=== PATIENT | female | born 1995 | race Hispanic/Latino ===

== ENCOUNTER 2018-05-17 18:14 | Emergency (ER) | payer OTHER ==
[2018-05-17 18:44] VITALS: RESP 18; BMI 38.9
[2018-05-17 20:27] LABS: URINE APPEARANCE CLEAR (CLEAR); URINE BILIRUBIN NEGATIVE (NEGATIVE); URINE BLOOD NEGATIVE (NEGATIVE); URINE COLOR LIGHT YELLOW (YELLOW); URINE GLUCOSE (UA) NEGATIVE (NEGATIVE); URINE LEUKOCYTE ESTERASE NEGATIVE Leu/uL (NEGATIVE); URINE PROTEIN NEGATIVE mg/dL (<30 mg/dL); URINE UROBILINOGEN 0.2 E.U./dL (<1 E.U./dL)
--- NOTE | 2018-05-17 20:40 | ED PDOC ---
Arrival/HPI <Eyad Mustafa - Last Filed: 05/17/18 21:19> - General Historian: Patient - History of Present Illness Narrative History of Present Illness (Text): 05/17/18 20:37 23 yo F complains of 3 days of constant L pelvic pain. She reports a h/o ovarian cyst which cause intermittent pelvic pain x1 year. She reports having a recent US in February of this year, which showed cyst on both ovaries L>R. Otherwise: (-) nausea / vomiting, (-) diarrhea, (-) fever, (-) urinary symptoms, (-) melena, (- ) hematochezia, (-) vaginal d/c, (-) vaginal bleding, (-) dyspareunia. Has history of prior abdominal surgery - 1 1 year ago. <Luli Turcios PA-C - Last Filed: 05/18/18 00:38> - General Chief Complaint: Abdominal Pain Time Seen by Provider: 05/17/18 19:02 Past Medical History - Cardiac Hx Cardiac Disorders: No - Pulmonary Hx Respiratory Disorders: No - Neurological Hx Neurological Disorder: No - Endocrine/Metabolic Hx Endocrine Disorders: No - Genitourinary/Gynecological Other/Comment: ovarian cysts - Psychiatric Hx Substance Use: No - Anesthesia Hx Anesthesia: No <Luli Turcios PA-C - Last Filed: 05/18/18 00:38> Family/Social History Family/Social History: No Known Family HX Smoking Status: Never Smoked Hx Alcohol Use: Yes Frequency of alcohol use: Socially Hx Substance Use: No <Luli Turcios PA-C - Last Filed: 05/18/18 00:38> Allergies/Home Meds <Eyad Mustafa - Last Filed: 05/17/18 21:19> <Luli Turcios PA-C - Last Filed: 05/18/18 00:38> Allergies/Adverse Reactions: Allergies No Known Allergies Allergy (Verified 05/17/18 19:22) Review of Systems - Review of Systems Constitutional: absent: Fatigue, Fevers Respiratory: absent: SOB, Cough Cardiovascular: absent: Chest Pain, Palpitations Gastrointestinal: Abdominal Pain. absent: Diarrhea, Nausea, Vomiting Genitourinary Female: absent: Dysuria, Frequency, Hematuria Musculoskeletal: absent: Arthralgias, Back Pain, Neck Pain Skin: absent: Rash, Pruritis Neurological: absent: Headache, Dizziness <Luli Turcios PA-C - Last Filed: 05/18/18 00:38> Physical Exam Vital Signs Temp Pulse Resp BP Pulse Ox 05/17/18 18:43 98.2 F 86 18 133/88 100 <Eyad Mustafa - Last Filed: 05/17/18 21:19> Vital Signs Temp Pulse Resp BP Pulse Ox 05/17/18 18:43 98.2 F 86 18 133/88 100 Temperature: Afebrile Blood Pressure: Normal Pulse: Regular Respiratory Rate: Normal Appearance: Positive for: Well-Appearing, Non-Toxic, Comfortable Pain Distress: None Mental Status: Positive for: Alert and Oriented X 3 - Systems Exam Head: Present: Atraumatic, Normocephalic Pupils: Present: PERRL Extroacular Muscles: Present: EOMI Conjunctiva: Present: Normal Mouth: Present: Moist Mucous Membranes Neck: Present: Normal Range of Motion, MIDLINE TENDERNESS. No: Meningeal Signs, Lymphadenopathy Respiratory/Chest: Present: Clear to Auscultation, Good Air Exchange. No: Respiratory Distress, Accessory Muscle Use, Rales, Rhonchi Cardiovascular: Present: Regular Rate and Rhythm, Normal S1, S2. No: Murmurs Abdomen: Present: Tenderness (+tenderness to the L pelvic area). No: Distention, Rebound, Guarding, Mass/Organomegaly Back: Present: Normal Inspection. No: CVA Tenderness, Midline Tenderness Upper Extremity: Present: Normal Inspection. No: Edema Lower Extremity: Present: Normal Inspection. No: Edema Neurological: Present: GCS=15, CN II-XII Intact, Speech Normal, Motor Func Grossly Intact Skin: Present: Warm, Dry, Normal Color. No: Rashes Psychiatric: Present: Alert, Oriented x 3, Normal Insight, Normal Concentration <Luli Turcios PA-C - Last Filed: 05/18/18 00:38> Medical Decision Making - Lab Interpretations Lab Results: Lab Results 05/17/18 20:00: Urine Color Light yellow, Urine Appearance Clear, Urine pH 6.0, Ur Specific [place] >= 1.030, Urine Protein Negative, Urine Glucose (UA) Negative, Urine Ketones Negative, Urine Blood Negative, Urine Nitrate Negative, Urine Bilirubin Negative, Urine Urobilinogen 0.2, Ur Leukocyte Esterase Negative - RAD Interpretation Radiology Orders: 05/17/18 19:23 TRANSVAGINAL [US] Stat <Eyad Mustafa - Last Filed: 05/17/18 21:19> ED Course and Treatment: 05/17/18 23:00 Plan : - Uhcg - UA - US TV Patient is refusing analgesics at this time. Uhcg (-) UA (-) US TV : Normal flow to both ovaries. Left ovarian cyst including a complex (hemorrhagic) 4.2 cm cyst. IUD is seen. Follow up study and a 1-2 menstrual cycles is recommended. As read by Tha Mccann MD 05/17/18 10:45 pm On reevaluation, patient reports no pain at this time. On exam, patient remains awake alert and oriented 3 in no acute distress. UA and US results d/w the patient. Advised to follow up with environmental programs manager in 1-2 days without fail. Return to the emergency room at any time for any new or worsening symptoms. Patient states she fully agrees with and understands discharge instructions. States that she agrees with the plan and disposition. Verbalized and repeated discharge instructions and plan. I have given the patient opportunity to ask any additional questions. - Lab Interpretations Lab Results: Lab Results 05/17/18 20:00: Urine Color Light yellow, Urine Appearance Clear, Urine pH 6.0, Ur Specific [place] >= 1.030, Urine Protein Negative, Urine Glucose (UA) Negative, Urine Ketones Negative, Urine Blood Negative, Urine Nitrate Negative, Urine Bilirubin Negative, Urine Urobilinogen 0.2, Ur Leukocyte Esterase Negative - RAD Interpretation Radiology Orders: 05/17/18 19:23 TRANSVAGINAL [US] Stat <Luli Turcios PA-C - Last Filed: 05/18/18 00:38> - PA / [employer] / Resident Statement [facility] has reviewed & agrees with the documentation as recorded. <Eyad Mustafa - Last Filed: 05/17/18 21:19> - PA / [employer] / Resident Statement [facility] has reviewed & agrees with the documentation as recorded. <Luli Turcios PA-C - Last Filed: 05/18/18 00:38> Disposition/Present on Arrival <Eyad Mustafa - Last Filed: 05/17/18 21:19> - Present on Arrival Any Indicators Present on Arrival: No History of DVT/PE: No History of Uncontrolled Diabetes: No Urinary Catheter: No History of Decub. Ulcer: No History Surgical Site Infection Following: None - Disposition Have Diagnosis and Disposition been Completed?: Yes Disposition Time: 23:00 Patient Plan: Discharge <Luli Turcios PA-C - Last Filed: 05/18/18 00:38> - Disposition Diagnosis: Pelvic pain, Ovarian cyst Disposition: HOME/ ROUTINE Patient Problems: Current Active Problems Problem Status Onset Pelvic pain Acute Ovarian cyst Acute Condition: STABLE Discharge Instructions (ExitCare): Ovarian Cysts, Acute Pelvic Pain (DC) Additional Instructions: Thank you for letting us take care of you today. You were treated for pelvic pain, ovarian cyst. The emergency medical care you received today was directed at your acute symptoms. Return to the Emergency Department if your symptoms worsen, do not improve, or if you have any other problems. Please contact your environmental programs manager in 2 days for re-evaluation and follow up. Bring any paperwork you were given at discharge with you along with any medications you are taking to your follow up visit. Our treatment cannot replace ongoing medical care by a primary care provider (PCP) outside of the emergency department. Thank you for allowing the [facility] team to be part of your care today. Referrals: Zoya Lewis MD [Primary Care Provider] - Follow up with primary Forms: [employer] (Fijian), WORK NOTE
[2018-05-18 05:53] VITALS: BP 125/86; PULSE 82; TEMP 98; O2SAT 97
--- NOTE | 2018-05-18 10:23 | US ---
Date of service: 05/17/2018 HISTORY: L pelvic pain, r/o torsion COMPARISON: None available. TECHNIQUE: Grayscale imaging was performed. FINDINGS: UTERUS: Measures 6.1 x 4.5 x 5.7 cm. Anteverted, normal in size and appearance. No fibroid or other mass lesion seen. ENDOMETRIUM: Measures 7.5 mm in diameter. An intrauterine device remains in satisfactory position. CERVIX: No cervical abnormality identified. RIGHT OVARY: Measures 3.2 x 1.7 x 2.7 cm. No solid mass. Normal flow. LEFT OVARY: Measures 3.8 x 1.8 x 2.9 cm. No solid mass. Normal flow. There is a 1.9 x 1.8 x 1.9 cm cyst. There is a 4.2 x 3.5 x 3.8 cm anechoic mass with eccentric mural nodularity without significant flow on color Doppler imaging. FREE FLUID: No significant free fluid noted. OTHER FINDINGS: None. IMPRESSION: Six 6 intrauterine device remains in satisfactory position. 4.2 cm cyst with eccentric mural nodularity likely a complicated/ hemorrhagic without significant central or peripheral flow on color Doppler imaging. Short-term follow-up ultrasound is recommended to assess stability/resolution. A preliminary report was provided by [facility].
== END 2018-05-17 23:18 | disposition home or self-care (01) ==
LOC: ED 18:14
DX: R10.2 Pelvic and perineal pain (principal); N83.202 Unspecified ovarian cyst, left side